=== PATIENT | male | born 1985 | race Caucasian/White ===

== ENCOUNTER 2017-06-25 07:52 | Outpatient (CLI) | payer OTHER ==
--- NOTE | 2017-06-25 10:32 | MRI Report ---
EXAM MRA BRAIN EXAM DATE: 06/25/2017 08:22 AM. CLINICAL HISTORY: Headache. Sleep disorder. COMPARISON: None. TECHNIQUE: Multiplanar, multisequence MRA sequences of the brain were performed. Other: None. Post-pr ocessing: Multiplanar 3D MIP reconstructions. IV Contrast: None. FINDINGS: RIGHT Internal Carotid (ICA): No aneurysm, stenosis or anomaly. Middle Cerebral (MCA): No aneurysm, stenosis or anomaly. Anterior Cerebral (MICHEAL): Hypoplastic right MICHEAL A1 segment. Posterior Cerebral (ORACLE PROGRAMMER ANALYST): No aneurysm, stenosis or anomaly. Posterior Communicating (P-COM): Not present in this patient. Vertebral: No aneurysm, stenosis or anomaly in the visualized upper vertebral artery. LEFT Internal Carotid (ICA): No aneurysm, stenosis or anomaly. Middle Cerebral (MCA): No aneurysm, stenosis or anomaly. Anterior Cerebral (MICHEAL): No stenosis, occlusion or filling defect. Extending posteriorly and medially from the distal aspect of the left MICHEAL A1 segment is a tiny nonspecific about 1 mm arterial protrusi on, reference image 152 of series 401. This may be a tiny aneurysm or the origin of a very small bran ch occlusion, this finding is too small to further characterize accurately. Posterior Cerebral (ORACLE PROGRAMMER ANALYST): No aneurysm, stenosis or anomaly. Posterior Communicating (P-COM): Not present in this patient. Vertebral: No aneurysm, stenosis or anomaly in the visualized upper vertebral artery. MIDLINE Anterior Communicating (A-COM): Patent. Other: Normal basilar artery. The left intradural vertebral artery is congenitally dominant. IMPRESSION: 1. 1 mm indeterminate arterial protrusion near the junction of the left MICHEAL A1 and A2 segments, poten tially the origin of a very small arterial branch versus tiny 1 mm aneurysm. MRA follow-up may be obt ained to determine stability, consider a 12 month interval. 2. Otherwise negative MRA of the head. [facility] Referring Provider Line: [phone] SITE ID: [id number]
== END 2017-06-25 07:53 | disposition home or self-care (01) ==
LOC: DI 07:52
PROVIDERS: ATTEND Psychiatry & Neurology Neurology
DX: R51 Headache (principal); F51.8 Other sleep disorders not due to a substance or known physiological condition; Z87.828 Personal history of other (healed) physical injury and trauma
CPT/HCPCS: 70544

== ENCOUNTER 2018-07-26 13:46 | Outpatient (CLI) | payer OTHER ==
--- NOTE | 2018-08-01 13:08 | MRI Report ---
Reason: CEREBRAL ANEURYSM Procedure Date: 07/26/2018 Accession Number: [id number] / [id number] Procedure: MRI - Brain W/O CPT Code: FULL RESULT: EXAM: MRI BRAIN WITHOUT CONTRAST EXAM DATE: 07/26/2018 02:57 PM. CLINICAL HISTORY: 33-year-old male. CEREBRAL ANEURYSM. COMPARISON: BRAIN ANGIO W/O 06/25/2017 8:00 AM BRAIN W/WO 07/10/2016 7:46 AM. TECHNIQUE: Multiplanar, multisequence T1-weighted and fluid-sensitive MR sequences of the brain were performed. Sequences optimized for routine evaluation. Other: None. IV Contrast: None. FINDINGS: Brain Volume: Normal for age. Parenchyma/Dura: No mass, acute infarct or acute hemorrhage. Stable scattered T2/FLAIR hyperintense subcortical and deep white matter lesions with an anterior frontal lobes bilaterally. Redemonstration 4 mm cystic focus within the posterior right alexa (series 601 image 8). Redemonstration scattered parenchymal microhemorrhages and chronic hemosiderin staining left temporal lobe, left occipital lobe, anterior frontal lobes bilaterally, right parietal lobe, likely sequela of prior trauma. Ventricles/Cisterns: No hydrocephalus. No abnormal extra-axial fluid collection or hemorrhage. Orbits: Symmetric and unremarkable. Sella Turcica: The pituitary gland, cavernous sinuses, suprasellar cistern and optic chiasm are unremarkable. IAC: Symmetric and unremarkable. Vasculature: Normal signal flow void is seen in the major arterial structures at the skull base. Sinuses: Small mucus retention cyst/polyp right maxillary sinus. The remaining paranasal sinuses are clear. Bones: No focal pathologic appearing marrow signal changes. Other: None. IMPRESSION: 1. No MRI evidence of acute intracranial abnormality. Specifically, no evidence of acute or subacute infarct, acute intracranial hemorrhage, mass, midline shift, or hydrocephalus. 2. Stable scattered T2/FLAIR hyperintense subcortical and deep white matter lesions with an anterior frontal lobes bilaterally. Redemonstration 4 mm cystic focus within the posterior right alexa (series 601 image 8). These are nonspecific, possibly related to prior trauma. 3. Redemonstration scattered parenchymal microhemorrhages and chronic hemosiderin staining left temporal lobe, left occipital lobe, anterior frontal lobes bilaterally, right parietal lobe, likely sequela of prior trauma. [facility]
--- NOTE | 2018-08-01 13:13 | MRI Report ---
Reason: CEREBRAL ANEURYSM Procedure Date: 07/26/2018 Accession Number: [id number] / [id number] Procedure: MRI - Angio Brain W/O (MRA) CPT Code: FULL RESULT: EXAM MRA BRAIN EXAM DATE: 07/26/2018 02:57 PM. CLINICAL HISTORY: 33-year-old male, possible cerebral aneurysm COMPARISON: BRAIN ANGIO W/O 06/25/2017 8:00 AM. TECHNIQUE: Multiplanar, multisequence MRA sequences of the brain were performed. Other: None. Post-processing: Multiplanar 3D MIP reconstructions. IV Contrast: None. FINDINGS: RIGHT Internal Carotid (ICA): No aneurysm, stenosis or anomaly. Middle Cerebral (MCA): No aneurysm, stenosis or anomaly. Anterior Cerebral (MICHEAL): The A1 segment of the right MICHEAL small but otherwise unremarkable. Posterior Cerebral (CHILD CARE ASSOCIATE): No aneurysm, stenosis or anomaly. Posterior Communicating (P-COM): Not clearly visualized, likely hypoplastic or aplastic. Vertebral: No aneurysm, stenosis or anomaly in the visualized upper vertebral artery. LEFT Internal Carotid (ICA): No aneurysm, stenosis or anomaly. Middle Cerebral (MCA): No aneurysm, stenosis or anomaly. Anterior Cerebral (MICHEAL): Stable posteriorly and medially oriented vascular outpouching arising from the junction of the A1 segment of left MICHEAL and anterior communicating artery (series 401 image 134), likely representing a small aneurysm. Posterior Cerebral (CHILD CARE ASSOCIATE): No aneurysm, stenosis or anomaly. Posterior Communicating (P-COM): Not clearly visualized, likely hypoplastic or aplastic. Vertebral: The left vertebral artery is dominant. No aneurysm, stenosis or anomaly in the visualized upper vertebral artery. MIDLINE Anterior Communicating (A-COM): No aneurysm, stenosis or anomaly. Basilar Artery:No aneurysm, stenosis or anomaly. Other: None. IMPRESSION: 1. Stable posteriorly and medially oriented vascular outpouching arising from the junction of the A1 segment of left MICHEAL and anterior communicating artery (series 401 image 134), likely representing a small aneurysm. Otherwise unremarkable. [facility]
== END 2018-07-26 13:47 | disposition home or self-care (01) ==
LOC: DI 13:46
PROVIDERS: ATTEND Psychiatry & Neurology Neurology
DX: G93.9 Disorder of brain, unspecified (principal); I61.6 Nontraumatic intracerebral hemorrhage, multiple localized
CPT/HCPCS: 70544; 70551

== ENCOUNTER 2020-08-02 13:50 | Outpatient (CLI) | payer OTHER ==
[2020-08-02 17:42] LABS: BASOPHILS % (AUTO) 0.4 %; EOSINOPHILS # (AUTO) 0.2 10^3/uL (0.0-0.7); EOSINOPHILS % (AUTO) 1.8 %; LYMPHOCYTES # (AUTO) 2.3 10^3/uL (1.5-3.5); MEAN CORPUSCULAR HEMOGLOBIN 28.7 pg (27.0-31.0); MEAN CORPUSCULAR HGB CONC 33.2 g/dL (32.0-36.0); MEAN CORPUSCULAR VOLUME 86.4 fL (80.0-94.0); MEAN PLATELET VOLUME 9.9 fL (7.4-11.4); MONOCYTES # (AUTO) 0.7 10^3/uL (0.0-1.0); MONOCYTES % (AUTO) 7.2 %; NEUTROPHILS # (AUTO) 6.1 10^3/uL (1.5-6.6); NEUTROPHILS % (AUTO) 65.3 %; PLT - PLATELET COUNT 273 10^3/uL (130-450); RED BLOOD COUNT 5.23 10^6/uL (4.70-6.10); RED CELL DISTRIBUTION WIDTH 12.1 % (12.0-15.0); WHITE BLOOD COUNT 9.4 x10^3/uL (4.8-10.8)
[2020-08-02 17:59] LABS: ALBUMIN/GLOBULIN RATIO 1.5 (1.0-2.2); BILIRUBIN,TOTAL 0.9 mg/dL (0.2-1.0); CALCIUM 9.8 mg/dL (8.5-10.3); TOTAL PROTEIN 8.4 g/dL (6.7-8.2)
== END 2020-08-02 23:59 | disposition home or self-care (01) ==
LOC: LAB.WCP 13:50
PROVIDERS: ATTEND Nurse Practitioner Family
DX: Z00.00 Encounter for general adult medical examination without abnormal findings (principal)
CPT/HCPCS: 36415; 80053; 85025

== ENCOUNTER 2020-08-27 14:57 | Outpatient (CLI) | payer OTHER ==
--- NOTE | 2020-09-06 08:22 | Ultrasound Report ---
PROCEDURE: Retroperitoneal INDICATIONS: FAMILY HX OF RENAL DISEASE TECHNIQUE: Real-time scanning was performed of the retroperitoneal organs, with image documentation. COMPARISON: None. FINDINGS: Kidneys: Kidneys are normal in size. Right kidney measures 9.3 cm long; left kidney measures 11.0 c m long. Right renal cortical thickness is 1.3 cm; left renal cortical thickness is 1.7 cm. No solid masses, hydronephrosis, or nephrolithiasis. Bladder: Prevoid volume 3 5 cc. Postvoid residual 41 cc. Prostate measures 6.6 x 4.2 x 3.1 cm. Bilate ral ureteral jets are identified. Bladder demonstrate a mild appearance of diffusely thickened wall. IMPRESSION: 1. Mild appearance of diffuse bladder wall thickening which can be seen with cystitis or incomplete d istention. Reviewed by: Sandra Wilson MD on 09/06/2020 8:[address] [facility] Approved by: Sandra Wilson MD on 09/06/2020 8:[address] [facility] Station ID: [id number]
== END 2020-08-27 14:58 | disposition home or self-care (01) ==
LOC: DI 14:57
PROVIDERS: ATTEND Nurse Practitioner Family
DX: N32.89 Other specified disorders of bladder (principal); Z84.1 Family history of disorders of kidney and ureter

== ENCOUNTER 2020-11-19 07:18 | Day surgery (SDC) | payer OTHER ==
[2020-11-19] MEDS ORDERED: LACTATED RINGERS 1,000 ML IV ONE ×2 (07:43→09:07)
--- NOTE | 2020-11-19 07:53 | ANESTHESIA ---
Pre-Anesthesia VS, & Labs - Diagnosis family history of colon cancer - Procedure colonoscopy Vital Signs: Temp Pulse Resp BP Pulse Ox 36.8 C 78 16 126/82 H 99 11/19/20 07:25 11/19/20 07:25 11/19/20 07:25 11/19/20 07:25 11/19/20 07:25 Height: 5 ft 5 in Weight (kg): 76.5 kg Body Mass Index: 28.0 BMI Classification: Overweight - NPO >8 hours Home Medications and Allergies Home Medications: Ambulatory Orders Amitriptyline [Elavil] 10 mg PO HS 11/18/20 nadoloL [Corgard] 20 mg PO DAILY 11/18/20 Amitriptyline [Elavil] 10 mg PO HS 11/18/20 nadoloL [Corgard] 20 mg PO DAILY 11/18/20 Allergies/Adverse Reactions: Allergies Allergy/AdvReac Type Severity Reaction Status Date / Time No Known Drug Allergies Allergy Verified 11/18/20 13:30 Anes History & Medical History - Anesthetic History Anesthesia Complications: reports: No previous complications - Medical History Cardiovascular: reports: None Pulmonary: reports: None Gastrointestinal: reports: None Urinary: reports: None Musculoskeletal: reports: None Endocrine/Autoimmune: reports: None Skin: reports: None Smoking Status: Never smoker Psychosocial: reports: Alcohol (few on fridays) History of Cancer?: No Exam General: Alert Dental: WNL Thyromental Distance: greater than 6 cm Respiratory: Lungs clear Cardiovascular: Regular rate, Normal S1, Normal S2 Plan Anesthesia Type: Total IV Consent for Procedure(s) Verified and Reviewed: Yes Code Status: Attempt Resuscitation ASA classification: 2-Mild systemic disease Is this case an emergency?: No
[2020-11-19] MEDS ORDERED: PROPOFOL 500 MG/50 ML 500 MG/50 ML VIAL ONE (08:28)
[2020-11-19] MEDS ORDERED: LIDOCAINE-MPF 2% 5 ML VIAL ONE (08:29)
--- NOTE | 2020-11-19 08:30 | HISTORY & PHYSICAL EXAMINATION ---
Chief Complaint - Chief Complaint Chief Complaint: brother with colon cancer History of Present Illness - History Obtained From Records Reviewed: yes History obtained from: patient Exam Limitations: none - History of Present Illness HPI Comment/Other: brother has advanced colon cancer History - Past Medical History Cardiovascular: reports: None Respiratory: reports: None Endocrine/Autoimmune: reports: None GI: reports: None : reports: None HEENT: reports: None Psych: reports: None Musculoskeletal: reports: None Derm: reports: None MRSA Hx?: No Meds/Allgy - Home Medications Home Medications: Ambulatory Orders Medication Instructions Recorded Confirmed Amitriptyline [Elavil] 10 mg PO HS 11/18/20 11/18/20 nadoloL [Corgard] 20 mg PO DAILY 11/18/20 11/18/20 - Allergies Allergies/Adverse Reactions: Allergies Allergy/AdvReac Type Severity Reaction Status Date / Time No Known Drug Allergies Allergy Verified 11/18/20 13:30 Review of Systems - Constitutional Constitutional: reports: Fatigue - Other Findings Other Findings: 10 pt ros as above otherwise unremarkable Exam - Vital Signs Reviewed Vital Signs: Yes Vital Signs: Vital Signs x48h Temp Pulse Resp BP Pulse Ox 11/19/20 07:25 36.8 C 78 16 126/82 H 99 - Physical Exam General Appearance: positive: No acute distress, Alert Eyes Bilateral: positive: Normal inspection, PERRL, EOMI ENT: positive: No signs of dehydration Neck: positive: No JVD Respiratory: positive: Breath sounds nml Cardiovascular: positive: Regular rate & rhythm Abdomen: positive: Non-tender, No distention Conclusion/Plan - Problem List (1) Family hx of colon cancer Conclusion/Plan: plan colonoscopy. parq held and consent obtained
--- NOTE | 2020-11-19 09:15 | ANESTHESIA POST OP EVALUATION ---
Anesthesia Post Eval - Post Anesthesia Eval Vitals: Last Vital Signs Temp 36.2 C L 11/19/20 09:06 Pulse 81 11/19/20 09:06 Resp 16 11/19/20 09:06 BP 100/64 11/19/20 09:06 Pulse Ox 99 11/19/20 09:06 CV Function Including HR & BP: positive: Stable Pain Control: positive: Satisfactory Nausea & Vomiting: positive: Negative Mental Status: positive: Baseline Respiratory Status: Airway Patent Hydration Status: Satisfactory Anesthesia Complications: positive: None
[2020-11-19 09:18] VITALS: BP 106/67
== END 2020-11-19 07:19 | disposition home or self-care (01) ==
LOC: SDS 07:18
PROVIDERS: ATTEND Surgery
PROC: 0DBL8ZZ Excision of Transverse Colon, Via Natural or Artificial Opening Endoscopic (ICD-10-PCS; 2020-11-19)
PROC: 0DBK8ZZ Excision of Ascending Colon, Via Natural or Artificial Opening Endoscopic (ICD-10-PCS; principal; 2020-11-19 08:30)
DX: Z12.11 Encounter for screening for malignant neoplasm of colon (principal); D12.2 Benign neoplasm of ascending colon; D12.3 Benign neoplasm of transverse colon; Z80.0 Family history of malignant neoplasm of digestive organs; E66.3 Overweight; Z68.28 Body mass index [BMI] 28.0-28.9, adult
CPT/HCPCS: 45380; J7120

== ENCOUNTER 2021-10-28 11:17 | Outpatient (CLI) | payer OTHER ==
[2021-10-28 18:25] LABS: BASOPHILS % (AUTO) 0.5 %; EOSINOPHILS # (AUTO) 0.1 10^3/uL (0.0-0.7); EOSINOPHILS % (AUTO) 1.8 %; HCT - HEMATOCRIT 44.4 % (42.0-52.0); HGB - HEMOGLOBIN 14.7 g/dL (14.0-18.0); LYMPHOCYTES # (AUTO) 2.1 10^3/uL (1.5-3.5); LYMPHOCYTES % (AUTO) 26.4 %; MEAN CORPUSCULAR HEMOGLOBIN 28.5 pg (27.0-31.0); MEAN CORPUSCULAR HGB CONC 33.1 g/dL (32.0-36.0); MEAN CORPUSCULAR VOLUME 86.2 fL (80.0-94.0); MEAN PLATELET VOLUME 10.5 fL (7.4-11.4); MONOCYTES # (AUTO) 0.6 10^3/uL (0.0-1.0); MONOCYTES % (AUTO) 7.2 %; NEUTROPHILS % (AUTO) 63.8 %; PLT - PLATELET COUNT 276 10^3/uL (130-450); RED BLOOD COUNT 5.15 10^6/uL (4.70-6.10); RED CELL DISTRIBUTION WIDTH 12.4 % (12.0-15.0); WHITE BLOOD COUNT 7.8 x10^3/uL (4.8-10.8)
[2021-10-28 18:50] LABS: % IRON SATURATION 30 % (20-50); ALBUMIN 4.6 g/dL (3.2-5.5); ALBUMIN/GLOBULIN RATIO 1.4 (1.0-2.2); ALKALINE PHOSPHATASE 51 IU/L (42-121); ALT ALANINE AMINOTRANSFERASE 25 IU/L (10-60); AST ASPARTATE AMINOTRANSFERASE 27 IU/L (10-42); BILIRUBIN,TOTAL 0.9 mg/dL (0.2-1.0); BUN - BLOOD UREA NITROGEN 19 mg/dL (6-20); CALCIUM 9.4 mg/dL (8.5-10.3); CARBON DIOXIDE - CO2 29 mmol/L (21-32); CHLORIDE 98 mmol/L (101-111); CHOLESTEROL 145 mg/dL; GFR - MDRD 85 (>89); GLUCOSE 96 mg/dL (70-100); HDL CHOLESTEROL 36 mg/dL; IRON 106 ug/dL (45-182); LDL CHOLESTEROL,CALCULATED 89 mg/dL; LDL/HDL RATIO 2.5 (<3.6); POTASSIUM 4.5 mmol/L (3.5-5.0); SODIUM 134 mmol/L (135-145); TOTAL IRON BINDING CAPACITY 351 ug/dL (250-450); TOTAL PROTEIN 7.8 g/dL (6.7-8.2); TRANSFERRIN 251 mg/dL (180-329); TRIGLYCERIDES 101 mg/dL; VLDL CHOLESTEROL 20 mg/dL
[2021-10-28 19:34] LABS: BILIRUBIN,URINE NEGATIVE (NEGATIVE); GLUCOSE, URINE (UA) NEGATIVE (NEGATIVE); KETONES,URINE (UA) NEGATIVE (NEGATIVE); LEUKOCYTE ESTERASE, URINE NEGATIVE (NEGATIVE); NITRITE,URINE NEGATIVE (NEGATIVE); OCCULT BLOOD,URINE MODERATE (NEGATIVE); PROTEIN,URINE NEGATIVE (NEGATIVE); UROBILINOGEN,URINE 0.2 (NORMAL) E.U./dL (NORMAL)
[2021-10-28 19:39] LABS: CLARITY,URINE HAZY (CLEAR)
[2021-10-28 21:04] LABS: BACTERIA,URINE Rare /HPF (None Seen); SQUAMOUS EPITHELIAL CELL,UR NONE SEEN (<= Few); WBC,URINE 0-3 /HPF (0-3)
== END 2021-10-28 11:18 | disposition home or self-care (01) ==
LOC: LAB.N 11:17
PROVIDERS: ATTEND Nurse Practitioner
DX: R07.89 Other chest pain (principal); Z13.220 Encounter for screening for lipoid disorders; R31.9 Hematuria, unspecified; G25.81 Restless legs syndrome
CPT/HCPCS: 36415; 80053; 80061; 81001; 83540; 83721; 84466; 85025; 87086

== ENCOUNTER 2022-01-20 11:26 | Outpatient (CLI) | payer OTHER ==
[2022-01-20 17:54] LABS: HCT - HEMATOCRIT 45.5 % (42.0-52.0); HGB - HEMOGLOBIN 15.6 g/dL (14.0-18.0)
[2022-01-20 18:13] LABS: CREATININE,URINE 35.4 mg/dL; TOTAL PROTEIN,URINE TIMED < 6 mg/dL
[2022-01-20 18:15] LABS: CREATININE 1.1 mg/dL (0.6-1.2); POTASSIUM 4.3 mmol/L (3.5-5.0)
== END 2022-01-20 11:27 | disposition home or self-care (01) ==
LOC: LAB.N 11:26
PROVIDERS: ATTEND Student in an Organized Health Care Education/Training Program
DX: N05.9 Unspecified nephritic syndrome with unspecified morphologic changes (principal); D64.9 Anemia, unspecified; N25.81 Secondary hyperparathyroidism of renal origin; R80.9 Proteinuria, unspecified
CPT/HCPCS: 36415; 80048; 82570; 83970; 84156; 85014; 85018

== ENCOUNTER 2023-12-28 07:24 | Outpatient (CLI) | payer OTHER ==
[2023-12-28 12:24] LABS: BASOPHILS # (AUTO) 0.1 10^3/uL (0.0-0.1); BASOPHILS % (AUTO) 0.8 %; EOSINOPHILS # (AUTO) 0.1 10^3/uL (0.0-0.7); EOSINOPHILS % (AUTO) 2.2 %; HCT - HEMATOCRIT 46.4 % (42.0-52.0); HGB - HEMOGLOBIN 15.2 g/dL (14.0-18.0); LYMPHOCYTES # (AUTO) 1.4 10^3/uL (1.5-3.5); LYMPHOCYTES % (AUTO) 23.2 %; MEAN CORPUSCULAR HEMOGLOBIN 28.6 pg (27.0-31.0); MEAN CORPUSCULAR HGB CONC 32.8 g/dL (32.0-36.0); MEAN CORPUSCULAR VOLUME 87.4 fL (80.0-94.0); MONOCYTES # (AUTO) 0.5 10^3/uL (0.0-1.0); MONOCYTES % (AUTO) 8.8 %; NEUTROPHILS # (AUTO) 3.9 10^3/uL (1.5-6.6); NEUTROPHILS % (AUTO) 64.8 %; PLT - PLATELET COUNT 287 10^3/uL (130-450); RED BLOOD COUNT 5.31 10^6/uL (4.70-6.10); WHITE BLOOD COUNT 5.9 x10^3/uL (4.8-10.8)
[2023-12-28 12:30] LABS: BILIRUBIN,URINE NEGATIVE (NEGATIVE); GLUCOSE, URINE (UA) NEGATIVE (NEGATIVE); KETONES,URINE (UA) NEGATIVE (NEGATIVE); LEUKOCYTE ESTERASE, URINE NEGATIVE (NEGATIVE); NITRITE,URINE NEGATIVE (NEGATIVE); OCCULT BLOOD,URINE LARGE (NEGATIVE); PH,URINE 6.5 PH (5.0-7.5); PROTEIN,URINE NEGATIVE (NEGATIVE); UROBILINOGEN,URINE 0.2 (NORMAL) E.U./dL (NORMAL)
[2023-12-28 12:42] LABS: BACTERIA,URINE Few /HPF (None Seen); CLARITY,URINE HAZY (CLEAR); MUCUS,URINE Moderate Strands; SQUAMOUS EPITHELIAL CELL,UR NONE SEEN (<= Few)
[2023-12-28 12:44] LABS: ALBUMIN 4.8 g/dL (3.2-5.5); ALBUMIN/GLOBULIN RATIO 1.5 (1.0-2.2); ALKALINE PHOSPHATASE 60 IU/L (42-121); ALT ALANINE AMINOTRANSFERASE 20 IU/L (10-60); AST ASPARTATE AMINOTRANSFERASE 25 IU/L (10-42); BILIRUBIN,TOTAL 0.5 mg/dL (0.2-1.0); BUN - BLOOD UREA NITROGEN 14 mg/dL (6-20); CALCIUM 10.5 mg/dL (8.5-10.3); CARBON DIOXIDE - CO2 32 mmol/L (21-32); CHLORIDE 104 mmol/L (101-111); CHOL/HDL RATIO 4.3 (<5.0); CHOLESTEROL 154 mg/dL; CREATININE 1.2 mg/dL (0.6-1.3); GFR - MDRD 68 (>89); GLUCOSE 106 mg/dL (74-104); HDL CHOLESTEROL 36 mg/dL; LDL CHOLESTEROL,CALCULATED 95 mg/dL; LDL/HDL RATIO 2.6 (<3.6); POTASSIUM 4.4 mmol/L (3.5-4.5); SODIUM 140 mmol/L (135-145); TOTAL PROTEIN 8.1 g/dL (6.4-8.9); TRIGLYCERIDES 115 mg/dL (48-352); VLDL CHOLESTEROL 23 mg/dL
[2023-12-29 07:09] LABS: HBsAG SCREEN Negative (Negative)
[2023-12-30 17:08] LABS: T-TRANSGLUTAMINASE (TTG) IGG 6 U/mL (0-5)
[2023-12-31 23:08] LABS: HCV AB Non Reactive (Non Reactive)
== END 2023-12-28 07:25 | disposition home or self-care (01) ==
LOC: LAB.N 07:24
PROVIDERS: ATTEND Nurse Practitioner
DX: Z13.220 Encounter for screening for lipoid disorders (principal); R31.9 Hematuria, unspecified; T78.40XA Allergy, unspecified, initial encounter
CPT/HCPCS: 36415; 80053; 80061; 81001; 83721; 85025; 86364; 86709; 86803; 87340

== ENCOUNTER 2024-02-29 15:01 | Outpatient (CLI) | payer OTHER ==
--- NOTE | 2024-02-29 16:20 | Ultrasound Report ---
PROCEDURE: Soft Tissue Head or Neck INDICATIONS: ENLARGED THYROID, LYMPHADENOPATHY TECHNIQUE: Real-time scanning was performed of the thyroid gland, with image documentation. COMPARISON: None FINDINGS: Right: Thyroid lobe measures 5.1 x 1.4 x 1.3 cm. Left: Thyroid lobe measures 4.0 x 1.1 x 1.2 cm Isthmus: 0.2 cm thick. Echotexture: Homogeneous. Nodule number: One Location: Right midpole Size: 1.0 x 0.6 x 0.9 cm. Composition: Solid (2 points). Echogenicity: Hypoechoic (2 points). Shape: wider than tall (0 points). Margins: Smooth (0 points). Echogenic foci: None (0 points). Total points: 4 ACR TI-RADS category: TI-RADS 4: Moderately suspicious. IMPRESSION: Normal size of the thyroid. TI-RADS 4 thyroid nodule measuring 1 cm. Follow-up in one year is recommended per consensus guideline s. ACR TI-RADS definitions and recommendations: TI-RADS 1 (benign): 0 points. FNA not needed. TI-RADS 2 (not suspicious): 2 points. FNA not needed. TI-RADS 3 (mildly suspicious): 3 points. "FNA if 2.5 cm or larger, follow up if 1.5 cm or larger (at 1, 3, and 5 years). TI-RADS 4 (moderately suspicious): 4-6 points. "FNA if 1.5 cm or larger, follow up if 1 cm or larger (at 1, 2, 3, and 5 years). TI-RADS 5 (highly suspicious): 7 points or more. "FNA if 1 cm or larger, follow up if 0.5 cm or larger (every year for 5 years). Reviewed by: Lobo Bach MD on 02/29/2024 4:18 PM PDT Approved by: Lobo Bach MD on 02/29/2024 4:18 PM PDT Station ID: [id number]
== END 2024-02-29 15:02 | disposition home or self-care (01) ==
LOC: DI 15:01
PROVIDERS: ATTEND Nurse Practitioner
DX: E04.1 Nontoxic single thyroid nodule (principal)